=== PATIENT | female | born 2000 | race American Indian/Alaskan Native ===

== ENCOUNTER 2021-08-08 10:56 | Inpatient (IN) | payer MEDICAID ==
[2021-08-08] MEDS ORDERED: OXYTOCIN DRIP 30 UNITS/500 ML BAG IV SCH ×2 (15:00)
[2021-08-08] MEDS ORDERED: MINERAL OIL 30 ML ORAL LIQD PO PRN (15:00)
--- NOTE | 2021-08-08 15:01 | History and Physical Report ---
History of Present Illness Date of examination: 08/08/21 Chief complaint: ctx History of present illness: at 40.2wks by LMP c/w U/Sound. care at [facility]. Pt admits to movement, denies vag bleed or headache. Pt c/o ctx and LOF since 1am and pt came to the hospital at 10am. Pt desires epidural for pain relief, now with level 8/10. labs with O positive, neg antibody screen, HIV neg, RPR neg and HepBsAg neg. 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 Past History Past Medical History: no pertinent history Past Surgical History: no surgical history Social history: no significant social history - Obstetrical History Expected Date of Delivery: 08/03/21 Actual Gestation: 40 Week(s) 5 Day(s) : 1 Number of Living Children: 0 Medications and Allergies Allergies Allergy/AdvReac Type Severity Reaction Status Date / Time No Known Allergies Allergy Verified 08/08/21 11:17 Home Medications Medication Instructions Recorded Confirmed Last Taken Type No Known Home Medications [No 08/05/21 08/05/21 Unknown History Reported Home Medications] Active Meds: Active Medications Acetaminophen (Acetaminophen 325 Mg Tab) 650 mg PO Q4H PRN PRN Reason: Pain, Mild (1-3) Carboprost Tromethamine (Carboprost Tromethamine 250 Mcg/1 Ml Inj) 250 mcg IM ONCE PRN PRN Reason: Uterine Bleeding Ephedrine Sulfate (Ephedrine Sulfate 50 Mg/1 Ml Inj) 10 mg IV Q2M PRN PRN Reason: Hypotension Fentanyl (Fentanyl 100 Mcg/2 Ml Inj) 100 mcg IV Q2H PRN PRN Reason: Pain,Severe (7-10) LABOR PAIN Oxytocin/Sodium Chloride (Pitocin/Ns 30 Unit/500ml) 30 units in 500 mls @ 2 mls/hr IV TITR MARCIE; Protocol Lactated Ringer's (Lactated Ringers) 1,000 mls @ 125 mls/hr IV DIRECT MARCIE Oxytocin/Sodium Chloride (Pitocin/Ns 30 Unit/500ml) 30 units in 500 mls @ 40 mls/hr IV TITR MARCIE; Protocol Ampicillin Sodium (Ampicillin/Ns 2 Gm/100 Ml) 2 gm in 100 mls @ 100 mls/hr IV ONCE ONE; Protocol Stop: 08/08/21 15:50 Lidocaine (Lidocaine (2%) 20 Mg/1 Ml Vial 20 Ml Mdv) 20 ml INFILTRATI ONCE ONE Stop: 08/08/21 14:52 Loperamide HCl (Loperamide 2 Mg Cap) 2 mg PO ONCE PRN PRN Reason: give with Hemabate Methylergonovine Maleate (Methylergonovine Maleate 0.2 Mg/Ml Vial) 0.2 mg IM ONCE PRN PRN Reason: Uterine Bleeding Mineral Oil (Mineral Oil 30 Ml Oral Liqd) 30 ml PO QHS PRN PRN Reason: Constipation Misoprostol (Misoprostol 200 Mcg Tab) 800 mcg [place] ONCE PRN PRN Reason: Uterine Bleeding Nalbuphine HCl (Nalbuphine 10 Mg/1 Ml Inj) 10 mg IV Q2H PRN PRN Reason: Pain, Moderate (4-6) Ondansetron HCl (Ondansetron 4 Mg/2 Ml Inj) 4 mg IV Q8H PRN PRN Reason: Nausea And Vomiting Oxytocin (Oxytocin 10 Unit/1 Ml Inj) 10 unit IM ONCE PRN PRN Reason: Uterine Bleeding Promethazine HCl (Promethazine 25 Mg Tab) 25 mg PO Q6H PRN PRN Reason: Nausea And Vomiting Terbutaline Sulfate (Terbutaline 1 Mg/1 Ml Inj) 0.25 mg SUB-Q ONCE PRN PRN Reason: Hyperstimulation/Hypertonicity Review of Systems All systems: negative (ctx and LOF) - Vital Signs Vital signs: Vital Signs Pulse BP 114 H 114/75 08/08/21 11:25 08/08/21 11:25 Temp Pulse Resp BP Pulse Ox 98.4 F 114 H 20 118/73 97 08/08/21 11:31 08/08/21 13:37 08/08/21 11:31 08/08/21 13:37 08/08/21 13:37 - Physical Exam Breasts: Positive: deferred Cardiovascular: Regular rate Lungs: Positive: Normal air movement Abdomen: Positive: soft Genitourinary (Female): Positive: normal external genitalia Vulva: both: normal Uterus: Positive: enlarged (non-tender, gravid) Extremities: Positive: normal - Obstetrical FHR: category 1 Uterine Contraction Monitor Mode: External Cervical Dilatation: 4 Cervical Effacement Percentage: 90 station: -1 Uterine Contraction Pattern: Irregular Results Result Diagrams: 08/08/21 15:35 Abnormal lab results 08/08/21 Range/Units Unknown Membranes Rupture Positive A (Negative) All other labs normal. Assessment and Plan term IUP with PROM, latent labor, GBS+ exposure since pt ruptured at home earlier at 1am; Pt aware that she was GBS+ but came at 10am none the less. 1. admit to labor and delivery and give abx for GBS+ 2. Augment with pitocin 3. May have IV pain med or epidural when needed 4. Expect Plan of care discussed and pt agrees; all questions encouraged and answered
[2021-08-08] MEDS ORDERED: ONDANSETRON 4 MG/2 ML INJ IV PRN (15:30)
[2021-08-08] MEDS ORDERED: miSOPROStol 200 MCG TAB PR PRN (15:30)
[2021-08-08] MEDS ORDERED: LIDOCAINE (2%) 20 MG/1 ML VIAL 20 ML MDV INFILTRATI SCH (15:30)
[2021-08-08] MEDS ORDERED: ePHEDrine SULFATE 50 MG/1 ML INJ IV PRN ×2 (15:30→23:02)
[2021-08-08] MEDS ORDERED: OXYTOCIN 10 UNIT/1 ML INJ IM PRN (15:30)
[2021-08-08] MEDS ORDERED: ACETAMINOPHEN 325 MG TAB PO PRN (15:30)
[2021-08-08] MEDS ORDERED: NalbUPHINE 10 MG/1 ML INJ IV PRN (15:30)
[2021-08-08] MEDS ORDERED: PROMETHAZINE 25 MG TAB PO PRN (15:30)
[2021-08-08] MEDS ORDERED: CARBOPROST TROMETHAMINE 250 MCG/1 ML INJ IM PRN (15:30)
[2021-08-08] MEDS ORDERED: TERBUTALINE 1 MG/1 ML INJ SUB-Q PRN (15:30)
[2021-08-08] MEDS ORDERED: fentaNYL 100 MCG/2 ML INJ IV PRN (15:30)
[2021-08-08] MEDS ORDERED: METHYLERGONOVINE MALEATE 0.2 MG/ML VIAL IM PRN (15:30)
[2021-08-08] MEDS ORDERED: LOPERAMIDE 2 MG CAP PO PRN (15:30)
[2021-08-08 15:59] LABS: Hematocrit 38.4 % (30.3-42.9); Hemoglobin 13.1 gm/dl (10.1-14.3); Mean Corpuscular HGB Conc 34 % (30-34); Mean Corpuscular Volume 79 fl (79-97); Platelet Count 253 K/mm3 (140-440); Red Blood Count 4.89 M/mm3 (3.65-5.03); Red Cell Distribution Width 15.4 % (13.2-15.2)
[2021-08-08] MEDS ORDERED: AMPICILLIN/NS 2 GM/100 ML 2 GM/100 ML BAG IV SCH (16:00)
[2021-08-08] MEDS: LACTATED RINGERS 1,000 ML IV SCH ×2 (17:49→22:20)
--- NOTE | 2021-08-08 22:56 | Event Note ---
Date: 08/08/21 CC: Term PROM HPI: 21 y/o at 40-2/7 weeks gestation is undergoing augmentation of labor secondary to Term PROM. She has been leaking fluid since yesterday evening. CTX started after LOF. No VB. Good FM. She was admitted after 10:00 a.m. today. ROM Plus was (+). SVE was 4 cm dilated. Hence, she was in early labor. Pitocin was started to augment her labor. O: EFM= category 1 TOCO= q 5 min SVE= 4/50%/-2/posterior/medium. IUPC and FSE placed. RAD: OB US Limited= ordered IMP: 1.) 40 weeks 2.) Post-due date 3.) Term PROM 4.) GBS (+) PLAN: 1.) As cervical exam has not changed on Pitocin, D/C Pitocin. 2.) Start oral Cytotec to ripen the cervix further. 3.) IUPC and FSE placed. 4.) Epidural now.
[2021-08-08] MEDS ORDERED: NALOXONE 2 MG/2 ML INJ IV PRN (23:02)
--- NOTE | 2021-08-08 23:43 | Anesthesia Consultation ---
Anesthesia Consult and Med Hx Date of service: 08/08/21 - Airway Anesthetic Teeth Evaluation: Poor ROM Head & Neck: Adequate Mental/Hyoid Distance: Adequate Mallampati Class: Class II Intubation Access Assessment: Probably Good - Pulmonary Exam CTA: Yes - Cardiac Exam Cardiac Exam: RRR - Pre-Operative Health Status ASA Pre-Surgery Classification: ASA2 Proposed Anesthetic Plan: Epidural - Pulmonary Hx Smoking: No Hx Asthma: No COPD: No Hx Pneumonia: No - Cardiovascular System Hx Hypertension: No - Central Nervous System Hx Seizures: No Hx Psychiatric Problems: No - Endocrine Hx Renal Disease: No Hx End Stage Renal Disease: No Hx Hypothyroidism: No Hx Hyperthyroidism: No - Hematic Hx Anemia: Yes (Sickle Cell Anemia Trait) Hx Sickle Cell Disease: Yes (Trait) - Other Systems Hx Alcohol Use: No Hx Obesity: Yes
--- NOTE | 2021-08-08 23:45 | Progress Note ---
Labor Epidural - Labor Epidural Start Time: 23:13 Stop Time: 23:26 Performed by:: DONALD BISHOP Procedure: Patient is requesting epidural for labor pain. H&P and labs reviewed. Procedure explained, questions answered, consent obtained. Patient placed in sitting position with monitors applied. Timeout performed immediately before start of procedure. Prep/drape in usual sterile fashion. Skin localized 3 mL 1% lidocaine at L[3]-L[4] interspace. 17-gauge Touhy epidural needle advanced to ABI with saline at [8] cm. No blood/CSF noted via epidural needle. Epidural catheter advanced to [12] cm. Negative aspiration for blood and CSF via catheter, negative response to test dose 3 ml 1.5% lidocaine w/ Epi. Sterile dressing applied followed by tape reinforcement. Patient tolerated procedure well. No immediate complications noted.
--- NOTE | 2021-08-08 23:45 | Ultrasound Report ---
ULTRASOUND OBSTETRIC Indication: Abdominal pain, Findings: There is a single intrauterine . BPD = 9.6 cm = 39 weeks, 1 day(s). Head circumference = 34.4 cm = 39 weeks, 5 day(s). Abdominal circumference = 35.3 cm = 39 weeks, 1 day(s). Femur length = 8.2 cm = 41 weeks, 6 day(s). Overall estimated sonographic age = 40 weeks, 0 day(s). heart rate is 131 beats per minute. Estimated weight is 3901 grams position is cephalic. Cervix appears closed. Amniotic fluid volume appears normal. Maternal adnexa appear normal. Impression: 1. Single living intrauterine with estimated sonographic age of 40 weeks, 0 day(s). 2. No sonographic abnormality identified. Signer Name: Keith Dowling MD Signed: 08/08/2021 11:41 PM Workstation Name: [id number]
[2021-08-09] MEDS: fentaNYL-BUPIV 2 MCG/ML-0.125% 200 MCG/100 ML BAG EPIDURAL SCH ×2 (00:10→07:56)
[2021-08-09] MEDS: miSOPROStol 25 MCG TAB PO SCH ×3 (00:34→07:18)
[2021-08-09] MEDS: LACTATED RINGERS 1,000 ML IV SCH (07:50)
[2021-08-09] MEDS ORDERED: MINERAL OIL 30 ML ORAL LIQD ONE ×2 (09:37→10:03)
--- NOTE | 2021-08-09 10:40 | Progress Note ---
Assessment and Plan A IUP @ 37 6/7weeks IUGR Active labor P Will AROM Reassuring FHR Anticipate Subjective - Subjective Date of service: 08/09/21 Principal diagnosis: IUGR. IUP@ 37 6/7 weeks Objective - Vital Signs Vital Signs: Vital Signs - 12hr 08/08/21 08/08/21 08/08/21 22:35 22:40 22:44 Temperature Pulse Rate 85 94 H 92 H Respiratory Rate Blood Pressure 125/80 Blood Pressure [Left] O2 Sat by Pulse 98 100 Oximetry O2 Sat by Pulse Oximetry [ Anterior Bilateral Throughout] 08/08/21 08/08/21 08/08/21 22:45 22:50 22:55 Temperature Pulse Rate 93 H 88 103 H Respiratory Rate Blood Pressure Blood Pressure [Left] O2 Sat by Pulse 99 99 99 Oximetry O2 Sat by Pulse Oximetry [ Anterior Bilateral Throughout] 08/08/21 08/08/21 08/08/21 23:00 23:05 23:10 Temperature Pulse Rate 94 H 88 98 H Respiratory Rate Blood Pressure Blood Pressure [Left] O2 Sat by Pulse 99 98 99 Oximetry O2 Sat by Pulse Oximetry [ Anterior Bilateral Throughout] 08/08/21 08/08/21 08/08/21 23:13 23:15 23:19 Temperature Pulse Rate 82 93 H 121 H Respiratory Rate Blood Pressure 107/69 139/95 Blood Pressure [Left] O2 Sat by Pulse 98 Oximetry O2 Sat by Pulse Oximetry [ Anterior Bilateral Throughout] 08/08/21 08/08/21 08/08/21 23:20 23:25 23:27 Temperature Pulse Rate 130 H 117 H 101 H Respiratory Rate Blood Pressure 128/66 Blood Pressure [Left] O2 Sat by Pulse 99 99 Oximetry O2 Sat by Pulse Oximetry [ Anterior Bilateral Throughout] 08/08/21 08/08/21 08/08/21 23:30 23:31 23:34 Temperature Pulse Rate 86 83 91 H Respiratory Rate Blood Pressure 133/59 127/80 Blood Pressure [Left] O2 Sat by Pulse 97 Oximetry O2 Sat by Pulse Oximetry [ Anterior Bilateral Throughout] 08/08/21 08/08/21 08/08/21 23:35 23:37 23:40 Temperature Pulse Rate 87 91 H 83 Respiratory Rate Blood Pressure 131/70 116/59 Blood Pressure [Left] O2 Sat by Pulse 98 98 Oximetry O2 Sat by Pulse Oximetry [ Anterior Bilateral Throughout] 08/08/21 08/08/21 08/08/21 23:42 23:45 23:48 Temperature Pulse Rate 93 H 87 75 Respiratory Rate Blood Pressure 113/58 109/59 111/57 Blood Pressure [Left] O2 Sat by Pulse 99 Oximetry O2 Sat by Pulse Oximetry [ Anterior Bilateral Throughout] 08/08/21 08/08/21 08/08/21 23:50 23:51 23:54 Temperature Pulse Rate 78 78 76 Respiratory Rate Blood Pressure 105/55 107/59 Blood Pressure [Left] O2 Sat by Pulse 97 Oximetry O2 Sat by Pulse Oximetry [ Anterior Bilateral Throughout] 08/08/21 08/08/21 08/09/21 23:55 23:58 00:00 Temperature Pulse Rate 85 89 87 Respiratory Rate Blood Pressure 110/61 103/62 Blood Pressure [Left] O2 Sat by Pulse 97 99 Oximetry O2 Sat by Pulse Oximetry [ Anterior Bilateral Throughout] 08/09/21 08/09/21 08/09/21 00:03 00:05 00:06 Temperature Pulse Rate 88 77 74 Respiratory Rate Blood Pressure 107/65 107/64 Blood Pressure [Left] O2 Sat by Pulse 98 Oximetry O2 Sat by Pulse Oximetry [ Anterior Bilateral Throughout] 08/09/21 08/09/21 08/09/21 00:09 00:10 00:13 Temperature Pulse Rate 71 84 83 Respiratory Rate Blood Pressure 104/62 108/60 Blood Pressure [Left] O2 Sat by Pulse 97 Oximetry O2 Sat by Pulse Oximetry [ Anterior Bilateral Throughout] 08/09/21 08/09/21 08/09/21 00:15 00:18 00:20 Temperature Pulse Rate 72 81 67 Respiratory Rate Blood Pressure 99/58 100/62 Blood Pressure [Left] O2 Sat by Pulse 100 99 Oximetry O2 Sat by Pulse Oximetry [ Anterior Bilateral Throughout] 08/09/21 08/09/21 08/09/21 00:25 00:30 00:31 Temperature 97.6 F Pulse Rate 65 71 Respiratory 16 Rate Blood Pressure 102/66 Blood Pressure [Left] O2 Sat by Pulse 99 97 97 Oximetry O2 Sat by Pulse Oximetry [ Anterior Bilateral Throughout] 08/09/21 08/09/21 08/09/21 00:35 00:40 00:45 Temperature Pulse Rate 66 65 72 Respiratory Rate Blood Pressure 99/54 Blood Pressure [Left] O2 Sat by Pulse 97 98 98 Oximetry O2 Sat by Pulse Oximetry [ Anterior Bilateral Throughout] 08/09/21 08/09/21 08/09/21 00:49 00:50 00:55 Temperature Pulse Rate 76 73 68 Respiratory Rate Blood Pressure 96/53 Blood Pressure [Left] O2 Sat by Pulse 97 97 Oximetry O2 Sat by Pulse Oximetry [ Anterior Bilateral Throughout] 08/09/21 08/09/21 08/09/21 00:59 01:00 01:05 Temperature Pulse Rate 68 66 66 Respiratory Rate Blood Pressure 95/53 Blood Pressure [Left] O2 Sat by Pulse 98 98 Oximetry O2 Sat by Pulse Oximetry [ Anterior Bilateral Throughout] 08/09/21 08/09/21 08/09/21 01:09 01:10 01:15 Temperature Pulse Rate 67 61 65 Respiratory Rate Blood Pressure 94/56 Blood Pressure [Left] O2 Sat by Pulse 99 97 Oximetry O2 Sat by Pulse Oximetry [ Anterior Bilateral Throughout] 08/09/21 08/09/21 08/09/21 01:19 01:20 01:25 Temperature Pulse Rate 62 61 61 Respiratory Rate Blood Pressure 100/59 Blood Pressure [Left] O2 Sat by Pulse 97 97 Oximetry O2 Sat by Pulse Oximetry [ Anterior Bilateral Throughout] 08/09/21 08/09/21 08/09/21 01:29 01:30 01:35 Temperature Pulse Rate 63 64 63 Respiratory Rate Blood Pressure 96/58 Blood Pressure [Left] O2 Sat by Pulse 97 97 Oximetry O2 Sat by Pulse Oximetry [ Anterior Bilateral Throughout] 08/09/21 08/09/21 08/09/21 01:40 01:45 01:50 Temperature Pulse Rate 64 73 74 Respiratory Rate Blood Pressure 100/57 Blood Pressure [Left] O2 Sat by Pulse 97 99 99 Oximetry O2 Sat by Pulse Oximetry [ Anterior Bilateral Throughout] 08/09/21 08/09/21 08/09/21 01:51 01:55 01:59 Temperature Pulse Rate 77 81 93 H Respiratory Rate Blood Pressure 90/52 87/54 Blood Pressure [Left] O2 Sat by Pulse 97 Oximetry O2 Sat by Pulse Oximetry [ Anterior Bilateral Throughout] 08/09/21 08/09/21 08/09/21 02:00 02:05 02:10 Temperature Pulse Rate 77 86 92 H Respiratory Rate Blood Pressure 91/55 Blood Pressure [Left] O2 Sat by Pulse 98 98 98 Oximetry O2 Sat by Pulse Oximetry [ Anterior Bilateral Throughout] 08/09/21 08/09/21 08/09/21 02:15 02:19 02:20 Temperature Pulse Rate 74 82 72 Respiratory Rate Blood Pressure 86/54 Blood Pressure [Left] O2 Sat by Pulse 98 97 Oximetry O2 Sat by Pulse Oximetry [ Anterior Bilateral Throughout] 08/09/21 08/09/21 08/09/21 02:25 02:29 02:30 Temperature Pulse Rate 77 69 71 Respiratory Rate Blood Pressure 87/54 Blood Pressure [Left] O2 Sat by Pulse 97 97 Oximetry O2 Sat by Pulse Oximetry [ Anterior Bilateral Throughout] 08/09/21 08/09/21 08/09/21 02:35 02:38 02:39 Temperature Pulse Rate 80 92 H 81 Respiratory Rate Blood Pressure 112/57 Blood Pressure [Left] O2 Sat by Pulse 97 88 Oximetry O2 Sat by Pulse Oximetry [ Anterior Bilateral Throughout] 08/09/21 08/09/21 08/09/21 02:40 02:45 02:46 Temperature Pulse Rate 76 74 71 Respiratory Rate Blood Pressure 108/61 Blood Pressure [Left] O2 Sat by Pulse 100 99 Oximetry O2 Sat by Pulse Oximetry [ Anterior Bilateral Throughout] 08/09/21 08/09/21 08/09/21 02:50 02:55 03:00 Temperature Pulse Rate 69 66 63 Respiratory Rate Blood Pressure Blood Pressure [Left] O2 Sat by Pulse 99 98 98 Oximetry O2 Sat by Pulse Oximetry [ Anterior Bilateral Throughout] 08/09/21 08/09/21 08/09/21 03:05 03:10 03:15 Temperature Pulse Rate 65 63 63 Respiratory Rate Blood Pressure Blood Pressure [Left] O2 Sat by Pulse 97 97 97 Oximetry O2 Sat by Pulse Oximetry [ Anterior Bilateral Throughout] 08/09/21 08/09/21 08/09/21 03:17 03:20 03:22 Temperature Pulse Rate 65 66 67 Respiratory Rate Blood Pressure 103/59 Blood Pressure [Left] O2 Sat by Pulse 85 91 90 Oximetry O2 Sat by Pulse Oximetry [ Anterior Bilateral Throughout] 08/09/21 08/09/21 08/09/21 03:25 03:30 03:35 Temperature Pulse Rate 65 59 L 68 Respiratory Rate Blood Pressure Blood Pressure [Left] O2 Sat by Pulse 98 95 97 Oximetry O2 Sat by Pulse Oximetry [ Anterior Bilateral Throughout] 04/08/09/21 08/09/21 03:40 03:41 03:45 Temperature Pulse Rate 84 83 72 Respiratory Rate Blood Pressure Blood Pressure [Left] O2 Sat by Pulse 93 94 98 Oximetry O2 Sat by Pulse Oximetry [ Anterior Bilateral Throughout] 08/09/21 08/09/21 08/09/21 03:47 03:50 03:55 Temperature Pulse Rate 63 66 67 Respiratory Rate Blood Pressure 106/62 Blood Pressure [Left] O2 Sat by Pulse 98 98 Oximetry O2 Sat by Pulse Oximetry [ Anterior Bilateral Throughout] 08/09/21 08/09/21 08/09/21 04:00 04:02 04:05 Temperature 98.3 F Pulse Rate 62 64 Respiratory 18 Rate Blood Pressure Blood Pressure [Left] O2 Sat by Pulse 99 99 99 Oximetry O2 Sat by Pulse Oximetry [ Anterior Bilateral Throughout] 08/09/21 08/09/21 08/09/21 04:10 04:15 04:16 Temperature Pulse Rate 63 66 63 Respiratory Rate Blood Pressure 109/64 Blood Pressure [Left] O2 Sat by Pulse 98 98 Oximetry O2 Sat by Pulse Oximetry [ Anterior Bilateral Throughout] 08/09/21 08/09/21 08/09/21 04:20 04:25 04:30 Temperature Pulse Rate 62 62 69 Respiratory Rate Blood Pressure Blood Pressure [Left] O2 Sat by Pulse 98 97 100 Oximetry O2 Sat by Pulse Oximetry [ Anterior Bilateral Throughout] 08/09/21 08/09/21 08/09/21 04:35 04:40 04:45 Temperature Pulse Rate 63 64 68 Respiratory Rate Blood Pressure Blood Pressure [Left] O2 Sat by Pulse 100 99 99 Oximetry O2 Sat by Pulse Oximetry [ Anterior Bilateral Throughout] 08/09/21 08/09/21 08/09/21 04:47 04:50 04:55 Temperature Pulse Rate 67 71 76 Respiratory Rate Blood Pressure 107/63 Blood Pressure [Left] O2 Sat by Pulse 99 98 Oximetry O2 Sat by Pulse Oximetry [ Anterior Bilateral Throughout] 08/09/21 08/09/21 08/09/21 05:00 05:05 05:10 Temperature Pulse Rate 74 71 68 Respiratory Rate Blood Pressure Blood Pressure [Left] O2 Sat by Pulse 100 100 100 Oximetry O2 Sat by Pulse Oximetry [ Anterior Bilateral Throughout] 08/09/21 08/09/21 08/09/21 05:15 05:16 05:20 Temperature Pulse Rate 69 68 62 Respiratory Rate Blood Pressure 107/64 Blood Pressure [Left] O2 Sat by Pulse 100 100 Oximetry O2 Sat by Pulse Oximetry [ Anterior Bilateral Throughout] 08/09/21 08/09/21 08/09/21 05:25 05:30 05:35 Temperature Pulse Rate 67 69 65 Respiratory Rate Blood Pressure Blood Pressure [Left] O2 Sat by Pulse 100 100 100 Oximetry O2 Sat by Pulse Oximetry [ Anterior Bilateral Throughout] 08/09/21 08/09/21 08/09/21 05:40 05:45 05:46 Temperature Pulse Rate 68 68 65 Respiratory Rate Blood Pressure 109/62 Blood Pressure [Left] O2 Sat by Pulse 100 100 Oximetry O2 Sat by Pulse Oximetry [ Anterior Bilateral Throughout] 08/09/21 08/09/21 08/09/21 05:50 05:52 05:55 Temperature Pulse Rate 72 110 H 95 H Respiratory Rate Blood Pressure Blood Pressure [Left] O2 Sat by Pulse 100 85 100 Oximetry O2 Sat by Pulse Oximetry [ Anterior Bilateral Throughout] 08/09/21 08/09/21 08/09/21 05:59 06:00 06:05 Temperature Pulse Rate 101 H 111 H 112 H Respiratory Rate Blood Pressure Blood Pressure [Left] O2 Sat by Pulse 91 91 55 L Oximetry O2 Sat by Pulse Oximetry [ Anterior Bilateral Throughout] 08/09/21 08/09/21 08/09/21 06:07 06:10 06:15 Temperature Pulse Rate 103 H 78 Respiratory Rate Blood Pressure Blood Pressure [Left] O2 Sat by Pulse 68 L 98 100 Oximetry O2 Sat by Pulse Oximetry [ Anterior Bilateral Throughout] 08/09/21 08/09/21 08/09/21 06:20 06:25 06:30 Temperature Pulse Rate 78 78 73 Respiratory Rate Blood Pressure Blood Pressure [Left] O2 Sat by Pulse 100 100 100 Oximetry O2 Sat by Pulse Oximetry [ Anterior Bilateral Throughout] 08/09/21 08/09/21 08/09/21 06:35 06:40 06:45 Temperature Pulse Rate 68 74 74 Respiratory Rate Blood Pressure Blood Pressure [Left] O2 Sat by Pulse 100 100 100 Oximetry O2 Sat by Pulse Oximetry [ Anterior Bilateral Throughout] 08/09/21 08/09/21 08/09/21 06:50 06:52 06:55 Temperature Pulse Rate 72 101 H 108 H Respiratory Rate Blood Pressure Blood Pressure [Left] O2 Sat by Pulse 100 92 100 Oximetry O2 Sat by Pulse Oximetry [ Anterior Bilateral Throughout] 08/09/21 08/09/21 08/09/21 07:00 07:02 07:03 Temperature 98.5 F Pulse Rate 109 H 76 80 Respiratory 18 Rate Blood Pressure 97/56 Blood Pressure 97/56 [Left] O2 Sat by Pulse 72 L 100 Oximetry O2 Sat by Pulse Oximetry [ Anterior Bilateral Throughout] 08/09/21 08/09/21 08/09/21 07:04 07:05 07:10 Temperature Pulse Rate 75 86 Respiratory Rate Blood Pressure Blood Pressure [Left] O2 Sat by Pulse 100 99 Oximetry O2 Sat by Pulse 99 Oximetry [ Anterior Bilateral Throughout] 08/09/21 08/09/21 08/09/21 07:15 07:17 07:20 Temperature Pulse Rate 100 H 75 81 Respiratory Rate Blood Pressure 98/59 Blood Pressure [Left] O2 Sat by Pulse 99 100 Oximetry O2 Sat by Pulse Oximetry [ Anterior Bilateral Throughout] 08/09/21 08/09/21 08/09/21 07:25 07:30 07:32 Temperature Pulse Rate 76 80 66 Respiratory Rate Blood Pressure 94/51 Blood Pressure [Left] O2 Sat by Pulse 100 99 Oximetry O2 Sat by Pulse Oximetry [ Anterior Bilateral Throughout] 08/09/21 08/09/21 08/09/21 07:35 07:40 07:45 Temperature Pulse Rate 82 87 85 Respiratory Rate Blood Pressure Blood Pressure [Left] O2 Sat by Pulse 100 100 98 Oximetry O2 Sat by Pulse Oximetry [ Anterior Bilateral Throughout] 08/09/21 08/09/21 08/09/21 07:48 07:50 07:55 Temperature Pulse Rate 88 93 H 89 Respiratory Rate Blood Pressure 100/64 Blood Pressure [Left] O2 Sat by Pulse 99 97 Oximetry O2 Sat by Pulse Oximetry [ Anterior Bilateral Throughout] 08/09/21 08/09/21 08/09/21 08:00 08:02 08:05 Temperature Pulse Rate 91 H 90 98 H Respiratory Rate Blood Pressure 93/59 Blood Pressure [Left] O2 Sat by Pulse 98 98 Oximetry O2 Sat by Pulse Oximetry [ Anterior Bilateral Throughout] 08/09/21 08/09/21 08/09/21 08:10 08:15 08:18 Temperature Pulse Rate 91 H 92 H 90 Respiratory Rate Blood Pressure 91/58 Blood Pressure [Left] O2 Sat by Pulse 99 100 Oximetry O2 Sat by Pulse Oximetry [ Anterior Bilateral Throughout] 08/09/21 08/09/21 08/09/21 08:20 08:25 08:30 Temperature Pulse Rate 72 89 88 Respiratory Rate Blood Pressure Blood Pressure [Left] O2 Sat by Pulse 100 98 98 Oximetry O2 Sat by Pulse Oximetry [ Anterior Bilateral Throughout] 08/09/21 08/09/21 08/09/21 08:32 08:35 08:40 Temperature Pulse Rate 91 H 85 89 Respiratory Rate Blood Pressure 90/52 Blood Pressure [Left] O2 Sat by Pulse 98 98 Oximetry O2 Sat by Pulse Oximetry [ Anterior Bilateral Throughout] 08/09/21 08/09/21 08/09/21 08:45 08:48 08:50 Temperature Pulse Rate 86 95 H 85 Respiratory Rate Blood Pressure 91/53 Blood Pressure [Left] O2 Sat by Pulse 100 98 Oximetry O2 Sat by Pulse Oximetry [ Anterior Bilateral Throughout] 08/09/21 08/09/21 08/09/21 08:55 09:00 09:03 Temperature Pulse Rate 85 90 88 Respiratory Rate Blood Pressure 92/52 Blood Pressure [Left] O2 Sat by Pulse 97 100 Oximetry O2 Sat by Pulse Oximetry [ Anterior Bilateral Throughout] 08/09/21 08/09/21 08/09/21 09:05 09:10 09:15 Temperature Pulse Rate 86 84 90 Respiratory Rate Blood Pressure Blood Pressure [Left] O2 Sat by Pulse 99 99 100 Oximetry O2 Sat by Pulse Oximetry [ Anterior Bilateral Throughout] 08/09/21 08/09/21 08/09/21 09:17 09:20 09:25 Temperature Pulse Rate 85 85 94 H Respiratory Rate Blood Pressure 94/54 Blood Pressure [Left] O2 Sat by Pulse 100 99 Oximetry O2 Sat by Pulse Oximetry [ Anterior Bilateral Throughout] 08/09/21 08/09/21 08/09/21 09:27 09:30 09:32 Temperature Pulse Rate 99 H 103 H 101 H Respiratory Rate Blood Pressure 132/71 Blood Pressure [Left] O2 Sat by Pulse 92 100 Oximetry O2 Sat by Pulse Oximetry [ Anterior Bilateral Throughout] 08/09/21 08/09/21 08/09/21 09:35 09:40 09:46 Temperature Pulse Rate 99 H 115 H 76 Respiratory Rate Blood Pressure Blood Pressure [Left] O2 Sat by Pulse 100 100 100 Oximetry O2 Sat by Pulse Oximetry [ Anterior Bilateral Throughout] 08/09/21 08/09/21 08/09/21 09:51 09:56 10:02 Temperature Pulse Rate 128 H 148 H 79 Respiratory Rate Blood Pressure 128/60 Blood Pressure [Left] O2 Sat by Pulse 100 99 96 Oximetry O2 Sat by Pulse Oximetry [ Anterior Bilateral Throughout] 08/09/21 08/09/21 08/09/21 10:04 10:07 10:13 Temperature Pulse Rate 105 H 75 129 H Respiratory Rate Blood Pressure Blood Pressure [Left] O2 Sat by Pulse 90 98 97 Oximetry O2 Sat by Pulse Oximetry [ Anterior Bilateral Throughout] 08/09/21 08/09/21 08/09/21 10:16 10:17 10:18 Temperature Pulse Rate 125 H 120 H 121 H Respiratory Rate Blood Pressure 114/59 Blood Pressure [Left] O2 Sat by Pulse 94 95 Oximetry O2 Sat by Pulse Oximetry [ Anterior Bilateral Throughout] 08/09/21 08/09/21 08/09/21 10:23 10:28 10:32 Temperature Pulse Rate 113 H 114 H 97 H Respiratory Rate Blood Pressure 115/58 Blood Pressure [Left] O2 Sat by Pulse 99 97 Oximetry O2 Sat by Pulse Oximetry [ Anterior Bilateral Throughout] - Exam Abdomen: Present: normal appearance Vulva: both: normal Uterus: Present: normal FHR: category 2 Uterine Contraction Monitor Mode: Internal Cervical Dilatation: 5 Cervical Effacement Percentage: 90 station: -2 Uterine Contraction Frequency (min): 2 Uterine Contraction Duration: 1-2 Uterine Contraction Pattern: Regular Extremities: normal - Labs Labs: Abnormal Labs 08/08/21 08/08/21 15:35 Unknown MCH 27 L RDW 15.4 H Membranes Rupture Positive A Laboratory Results - last 24 hr 08/08/21 08/08/21 08/08/21 15:35 15:35 15:35 WBC 7.0 RBC 4.89 Hgb 13.1 Hct 38.4 MCV 79 MCH 27 L MCHC 34 RDW 15.4 H Plt Count 253 Membranes Rupture Syphilis IgG/IgM Ab Nonreactive Blood Type O POSITIVE Antibody Screen Negative 08/08/21 Unknown WBC RBC Hgb Hct MCV MCH MCHC RDW Plt Count Membranes Rupture Positive A Syphilis IgG/IgM Ab Blood Type Antibody Screen
--- NOTE | 2021-08-09 11:51 | Procedure Note ---
OB Delivery Note - Delivery Date of Delivery: 08/09/21 (1013) Surgeon: MERT MCCARTHY Estimated blood loss: other (350) - Vaginal Delivery presentation: vertex Delivery position: OA Intrapartum events: none Delivery induction: misoprostol Delivery monitor: external FHT, internal uterine Route of delivery: Delivery placenta: spontaneous Delivery cord: 3 umbilical vessels Episiotomy: none Delivery laceration: 2nd degree Delivery repair: vicryl Anesthesia: epidural Delivery comments: of a live 8'0 female over a 2nd degree vaginal laceration under epidural anesthesia with Apgars of 8 and 9 at 1013 on 08/09/2021. directly to maternal abd/chest, skin to skin contact. Spontaneous delivery of placenta complete and intact with Allred side presenting at 1016. Fundus is firm and midline located 4 below the U. Lochia is scant. Vaginal lacerations repaired with 2-[address]-1. Delayed cord clamping and cutting; Cord cut by the Father of the Baby. Cord blood collected; Placenta discarded. GBS Prophylaxis x 1. - Infant A at 1 minute: 8 at 5 minutes: 9 Infant Gender: Female (8'0)
[2021-08-09] MEDS ORDERED: LANOLIN/ZINC/DIMETHICONE (LANSINOH) 7 GM TP PRN (12:04)
[2021-08-09] MEDS ORDERED: oxyCODONE /ACETAMINOPHEN 5-325MG TAB PO PRN (12:04)
[2021-08-09] MEDS ORDERED: WITCH HAZEL/ GLYCERIN PAD TP PRN (12:04)
[2021-08-09] MEDS ORDERED: diphenhydrAMINE 25 MG CAP PO PRN (12:04)
[2021-08-09] MEDS: IBUPROFEN 800 MG TAB PO SCH ×2 (17:34→22:56)
[2021-08-10 00:42] LABS: Hematocrit 33.3 % (30.3-42.9); Hemoglobin 10.6 gm/dl (10.1-14.3)
--- NOTE | 2021-08-10 04:58 | Post Anesthesia Evaluation ---
- Post Anesthesia Evaluation Patient Participated: Yes Airway Patent: Yes Stable Respiratory Function: Yes Nausea/Vomiting: No Temp > 96.8F: Yes Pain Manageable: Yes Adequeate Hydration: Yes Anesthesia Complications: No Block Receding Appropriately: Yes Patient on Ventilator: No
[2021-08-10] MEDS ORDERED: TETANUS,DIPH,PERTUSS(ACELL) VACCINE 0.5 ML SYRINGE IM ONE (06:00)
[2021-08-10] MEDS: IBUPROFEN 800 MG TAB PO SCH ×2 (10:19→22:02)
[2021-08-10] MEDS: PRENATAL VIT27-FE FUMARATE-FOLIC ACID VIT TAB PO SCH (10:20)
--- NOTE | 2021-08-10 10:59 | Progress Note ---
Assessment and Plan A: PP Day #1 Stable P: Follow Routine Orders D/C Home in the AM RTO in 6 Weeks Subjective - Subjective Date of service: 08/10/21 Principal diagnosis: IUGR. IUP@ 37 6/7 weeks Patient reports: appetite normal, voiding normally, pain well controlled, flatus, ambulating normally : doing well, bottle feeding (and ) Objective - Vital Signs Latest vital signs: Vital Signs Temp Pulse Resp BP BP Pulse Ox Pulse Ox 08/10/21 08:36 97.6 F 82 18 99/59 100 08/10/21 00:00 98.4 F 132 H 16 115/78 08/09/21 23:56 18 08/09/21 22:56 18 08/09/21 20:15 98 08/09/21 19:57 98.0 F 107 H 18 109/63 98 08/09/21 16:18 97.9 F 101 H 18 100/58 99 08/09/21 13:40 100 08/09/21 13:39 98.0 F 16 115/78 08/09/21 12:33 147 H 96 08/09/21 12:28 140 H 96 08/09/21 12:23 133 H 96 08/09/21 12:18 138 H 97 08/09/21 12:13 131 H 97 08/09/21 12:08 116 H 98 08/09/21 12:03 115 H 98 08/09/21 11:58 109 H 99 08/09/21 11:55 126 H 111/62 08/09/21 11:53 112 H 96 08/09/21 11:48 107 H 99 08/09/21 11:43 105 H 98 08/09/21 11:38 107 H 98 08/09/21 11:33 113 H 98 08/09/21 11:28 103 H 98 08/09/21 11:23 78 99 08/09/21 11:18 82 100 08/09/21 11:17 83 112/61 08/09/21 11:13 90 98 08/09/21 11:10 100 H 90 08/09/21 11:08 96 H 100 08/09/21 11:03 97 H 99 08/09/21 11:02 94 H 110/55 88 08/09/21 10:58 78 100 Intake and Output 04/08/10/21 08/10/21 22:59 06:59 14:59 Intake Total 640 200 Output Total 900 Balance -260 200 Intake: Oral 640 200 Output: Urine 900 Void 900 Other: Total, Intake Amount 200 200 Total, Output Amount 900 # Voids Void 1 1 - Exam Breasts: Present: normal Cardiovascular: Present: Regular rate Lungs: Present: Clear to auscultation, Normal air movement Abdomen: Present: normal appearance, soft, normal bowel sounds Uterus: Present: normal, firm, fundal height below umbilicus Extremities: Present: normal
--- NOTE | 2021-08-10 11:01 | Discharge Summary ---
Providers - Providers Date of Admission: 08/08/21 14:51 Date of discharge: 08/11/21 Attending physician: ANABELLE MUNOZ Primary care physician: ANABELLE MUNOZ Hospitalization Reason for admission: active labor Delivery: Episiotomy: none Laceration: 2nd degree Other procedures: none complications: none Discharge diagnosis: IUP at term delivered baby: female Condition at discharge: Good Disposition: 01 HOME / SELF CARE / HOMELESS Plan - Provider Discharge Summary Activity: routine, no sex for 6 weeks, no heavy lifting 4 weeks, no strenuous exercise Diet: routine Instructions: routine Additional instructions: [] Smoking cessation referral if applicable(refer to patient education folder for contact #) [] Refer to [facility]'s [facility] Booklet Call your doctor immediately for: * Fever > 100.5 * Heavy vaginal bleeding ( >1 pad per hour) * Severe persistent headache * Shortness of breath * Reddened, hot, painful area to leg or breast * Drainage or odor from incision. * Keep incision clean and dry at all times and follow doctor's instructions regarding bathing/showering - Follow up plan Follow up: ANABELLE MUNOZ MD [Primary Care Provider] - 6 Weeks
[2021-08-10] MEDS ORDERED: MEASLES, MUMPS & RUBELLA 12,500 UNIT/0.5 ML VACCINE SUB-Q ONE (12:04)
[2021-08-11] MEDS: IBUPROFEN 800 MG TAB PO SCH ×3 (04:10→15:08)
[2021-08-11] MEDS: PRENATAL VIT27-FE FUMARATE-FOLIC ACID VIT TAB PO SCH (09:54)
[2021-08-11 15:58] VITALS: BP 117/80
== END 2021-08-11 18:38 | disposition home or self-care (01) | DRG 775 ==
LOC: APU 10:56 → TRG 10:56 → APU 10:57 → OBSVTOIN 14:51 → TRG 14:59 → LD 17:38 → OB 08-09 13:29
PROVIDERS: ADMIT Obstetrics & Gynecology; ATTEND Obstetrics & Gynecology
PROC: 10E0XZZ Delivery of Products of Conception, External Approach (ICD-10-PCS; principal; 2021-08-09)
PROC: 0KQM0ZZ Repair Perineum Muscle, Open Approach (ICD-10-PCS; 2021-08-09)
PROC: 10H07YZ Insertion of Other Device into Products of Conception, Via Natural or Artificial Opening (ICD-10-PCS; 2021-08-09)
PROC: 3E0R3BZ Introduction of Anesthetic Agent into Spinal Canal, Percutaneous Approach (ICD-10-PCS; 2021-08-09)
PROC: 00HU33Z Insertion of Infusion Device into Spinal Canal, Percutaneous Approach (ICD-10-PCS; 2021-08-09)
PROC: 3E0P7VZ Introduction of Hormone into Female Reproductive, Via Natural or Artificial Opening (ICD-10-PCS; 2021-08-09)
PROC: 10907ZC Drainage of Amniotic Fluid, Therapeutic from Products of Conception, Via Natural or Artificial Opening (ICD-10-PCS; 2021-08-09)
PROC: 3E0234Z Introduction of Serum, Toxoid and Vaccine into Muscle, Percutaneous Approach (ICD-10-PCS; 2021-08-10)
DX: O99.824 Streptococcus B carrier state complicating childbirth (principal); Z37.0 Single live birth; Z3A.40 40 weeks gestation of pregnancy; Z20.822 Contact with and (suspected) exposure to COVID-19; O42.02 Full-term premature rupture of membranes, onset of labor within 24 hours of rupture; O48.0 Post-term pregnancy; O70.1 Second degree perineal laceration during delivery; Z23 Encounter for immunization
CPT/HCPCS: 36415; 76815; 76816; 76819; 84112; 85014; 85018; 85027; 86592; 86850; 86900; 86901; G0378; J3490; J0290; J2590; J3010; J7120; U0003